=== PATIENT | female | born 1960 | race Caucasian/White ===

== ENCOUNTER 2022-11-19 08:25 | Oncology outpatient (recurring) (ONCR) | payer OTHER, SELFPAY ==
--- NOTE | 2022-11-19 09:22 | N.ONRAD NP_ITS ---
Radiation Oncology Consultation Patient Name: Mary Ellen Rubi Date of : 1960 Date of Service: 11/19/2022 Attending Physician: Td Lynn M.D. Mary Ellen Rubi was seen this morning for evaluation regarding palliative radiotherapy for the management of metastatic lung cancer. She was evaluated in March of 2022 for right clavicle pain. Radiography identified a lytic lesion in the proximal right clavicle and a left upper-lobe lung mass. A thoracic CT scan described a 6 cm left supra-hilar mass, spinal lymphadenopathy, numerous pulmonary sub-centimeter nodules, and a right clavicular osseous lesion. A bronchoscopy with endobronchial ultrasonography biopsy of the left upper-lobe mass performed on May 20, 2022 diagnosed a poorly-differentiated adenocarcinoma. PD-L1 TPS 99%. [employer] did not report an actionable mutation. A radiograph of the right femur ordered on July 22, 2022 described a 1.9 cm ill-defined osteolytic lesion the nina-inferior aspect of the left femoral head and a questionable osteolytic lesion superior to the left acetabulum. PET imaging obtained in May 2022 confirmed extensive pulmonary and osseous metastatic disease. She was prescribed carboplatin, Alimta, and Keytruda and Xgeva. A restaging PET scan (requested from [facility] and independently reviewed in [facility]) ordered on September 05, 2022 demonstrated an interval decrease in size and avidity of the pulmonary and osseous metastases. Chemoimmunotherapy cycle 8, day 1 of Keytruda and Alimta was administered on November 10, 2022. She was referred for palliative radiotherapy to the left femur. I discussed with Ms. Rubi the role for palliative radiation. I will order hip and left femur radiographs to evaluate her pain. Predicated on the imaging findings, radiation therapy may be considered. I would anticipate a 1 week course of treatment. A CT scan will be acquired for radiotherapy planning prior to beginning treatment to delineate the clinical target volume. The potential toxicities of radiotherapy were reviewed. The patient has verbalized understanding would like to proceed as recommended. Signed by: Td Lynn 11/19/2022 9:20:46 AM
--- NOTE | 2022-11-19 09:24 | XR_ITS ---
WS: [id number] Exam: XR hip BI 2V wo/w pel [id number] Date/Time of Exam: 11/19/2022 9:24 AM Reason For Exam: left hip and lower extremity pain No fracture or dislocation of either hip. The bilateral joint compartments are preserved. The bilater al soft tissues appear normal. XR/XR hip BI 2V wo/w pel [id number] IMPRESSION: 1. Unremarkable bilateral hips.
--- NOTE | 2022-11-19 09:24 | XR_ITS ---
WS: [id number] Exam: XR femur LT min 2V* [id number] Date/Time of Exam: 11/19/2022 9:24 AM Reason For Exam: left hip and lower extremity pain No fracture or dislocation. Articular relationships appear normal. Unremarkable soft tissues. XR/XR femur LT min 2V* [id number] IMPRESSION: 1. Negative left femur.
== END 2022-11-23 23:59 | disposition home or self-care (01) ==
PROVIDERS: Visit Provider Internal Medicine Medical Oncology
DX: C34.12 Malignant neoplasm of upper lobe, left bronchus or lung (principal); C79.51 Secondary malignant neoplasm of bone; C79.52 Secondary malignant neoplasm of bone marrow
CPT/HCPCS: 73521; 73552; 99205